=== PATIENT | male | born 1955 | race Caucasian/White ===

== ENCOUNTER 2019-03-28 11:32 | Emergency (ER) | payer BC ==
[~2019-03-28] VITALS: Ht 180.3 cm; Wt 86.4 kg
[2019-03-28] MEDS ORDERED: SUPER C COMPLEX PO (11:44)
[2019-03-28] MEDS ORDERED: ALFU10TA3 PO (11:44)
[2019-03-28] MEDS ORDERED: PROBCAP14 PO (11:44)
[2019-03-28] MEDS ORDERED: MULTCAP PO (11:44)
[2019-03-28] MEDS ORDERED: DOXY100C PO (11:44)
[2019-03-28] MEDS ORDERED: CVS2500C PO (11:44)
[2019-03-28] MEDS ORDERED: FINA5TAB2 PO (11:44)
[2019-03-28] MEDS ORDERED: FLOM0.4C39 PO (11:44)
[2019-03-28] MEDS ORDERED: ONDANSETRON 4MG/2ML VIAL (J2405) IV ONE (14:15)
[2019-03-28] MEDS ORDERED: methylPREDNISolone INJ 125 MG/2 ML VIAL (J2930) IV ONE (14:15)
[2019-03-28] MEDS ORDERED: diazePAM 10 MG/2 ML INJ (J3360) IV ONE (14:15)
[2019-03-28 14:34] LABS: BASO % 0.5 % (0.0-1.0); EOS # 0.2 10^3/uL (0.0-0.50); EOS % 2.4 % (0.0-3.0); HEMATOCRIT 43.6 % (42.0-52.0); HEMOGLOBIN 14.7 g/dl (13.5-17.5); LYMPH # 1.3 10^3/uL (1.5-4.5); LYMPH % 15.8 % (24.0-44.0); MEAN CORPUSCULAR HEMOGLOBIN 30.5 pg (27.0-33.0); MEAN CORPUSCULAR HGB CONC 33.7 g/dl (32.0-36.5); MEAN CORPUSCULAR VOLUME 90.5 fl (80.0-96.0); MONO # 0.8 10^3/uL (0.0-0.8); MONO % 9.2 % (0.0-5.0); NEUTROPHILS # 6.1 10^3/uL (1.8-7.7); NEUTROPHILS % 71.9 % (36.0-66.0); PLATELET COUNT, AUTOMATED 161 10^3/uL (150-450); RED BLOOD COUNT 4.82 10^6/uL (4.30-6.10); WHITE BLOOD COUNT 8.4 10^3/uL (4.0-10.0)
[2019-03-28 14:55] LABS: ERYTHROCYTE SEDIMENTATION RATE 8 mm/hr (0-20)
[2019-03-28 15:00] LABS: ALBUMIN 3.3 GM/DL (3.2-5.2); ALT/SGPT 25 U/L (12-78); BILIRUBIN,TOTAL 0.5 MG/DL (0.2-1.0); BLOOD UREA NITROGEN 10 MG/DL (7-18); C REACTIVE PROTEIN QUANTITATIV 0.82 MG/DL (0.00-0.30); CALCIUM LEVEL 7.9 MG/DL (8.8-10.2); CARBON DIOXIDE LEVEL 32 MEQ/L (21-32); CHLORIDE LEVEL 106 MEQ/L (98-107); CREATININE FOR GFR 0.89 MG/DL (0.70-1.30); GLOMERULAR FILTRATION RATE > 60.0 (>49); GLUCOSE, FASTING 95 MG/DL (70-100); POTASSIUM SERUM 4.1 MEQ/L (3.5-5.1); SODIUM LEVEL 141 MEQ/L (136-145); TOTAL PROTEIN 6.9 GM/DL (6.4-8.2)
[2019-03-28] MEDS ORDERED: ISOVUE-370 76% 100ML VIAL (Q9967) As Ordered ONE (15:12)
[2019-03-28] MEDS ORDERED: PRED20TA PO (16:59)
[2019-03-28] MEDS ORDERED: DOXY100C37 PO (16:59)
[2019-03-28] MEDS ORDERED: VALI5TAB PO (16:59)
[2019-03-28 17:08] VITALS: BP 143/91
--- NOTE | 2019-03-28 17:38 | REP ---
REASON FOR EXAM: Posterior neck pain. Assess for posterior neck soft-tissue abscess. CONTRAST: 100 mL [id number]-[id number]. The suprahyoid and infrahyoid anterior and posterior neck spaces are all normal. There is no mass, infection or evidence of abscess. The posterior neck soft tissues have a normal appearance. There is no evidence of a mass, abnormal fatty infiltration, or a discernable abscess. IMPRESSION:CT findings are within normal limits. Electronically Signed by Chay Rodríguez DO 03/28/2019 06:33 P
== END 2019-03-28 17:14 | disposition home or self-care (01) ==
LOC: M ED 11:32
DX: R51 Headache (principal); M54.2 Cervicalgia; A69.20 Lyme disease, unspecified; A77.49 Other ehrlichiosis; Z86.69 Personal history of other diseases of the nervous system and sense organs; Z88.8 Allergy status to other drugs, medicaments and biological substances; Z79.2 Long term (current) use of antibiotics
CPT/HCPCS: 70491; 80053; 85025; 85652; 86140; 96374; 96375; 99284; J2405; J2930; J3360; Q9967